=== PATIENT | female | born 1980 | race Two or more races ===

== ENCOUNTER 2020-10-19 01:30 | Emergency (ER) | payer OTHER ==
[~2020-10-19] VITALS: Ht 172.7 cm; Wt 104.3 kg
[~2020-10-19 01:30] MED LIST: NORFLEX100 MG PO; PRENATAL1 TAB PO; TORADOL10 MG PO
== END 2020-10-19 04:27 | disposition home or self-care (01) ==
LOC: ER 01:30
DX: O20.0 Threatened abortion (principal)

== ENCOUNTER 2020-10-25 18:57 | Emergency (ER) | payer OTHER ==
[~2020-10-25] VITALS: Ht 172.7 cm; Wt 92.1 kg
== END 2020-10-25 21:44 | disposition home or self-care (01) ==
LOC: ER 18:57
DX: O20.0 Threatened abortion (principal)

== ENCOUNTER 2021-12-25 12:31 | Outpatient (CLI) | payer OTHER | END 2021-12-25 13:11 | disposition home or self-care (01) | LOC: PRENATAL 12:31 | PROVIDERS: ATTEND Obstetrics & Gynecology Maternal & Fetal Medicine | DX: O09.529 Supervision of elderly multigravida, unspecified trimester (principal); Z36.0 Encounter for antenatal screening for chromosomal anomalies; Z3A.17 17 weeks gestation of pregnancy ==

== ENCOUNTER 2022-02-07 14:17 | Outpatient (CLI) | payer OTHER | END 2022-02-07 16:20 | disposition home or self-care (01) | LOC: PRENATAL 14:17 | PROVIDERS: ATTEND Obstetrics & Gynecology Maternal & Fetal Medicine | DX: O26.20 Pregnancy care for patient with recurrent pregnancy loss, unspecified trimester (principal); O35.0XX0 Maternal care for (suspected) central nervous system malformation in fetus, not applicable or unspecified; O09.529 Supervision of elderly multigravida, unspecified trimester; O09.219 Supervision of pregnancy with history of pre-term labor, unspecified trimester; Z3A.23 23 weeks gestation of pregnancy ==